=== PATIENT | male | born 1940 | race Two or more races ===

== ENCOUNTER 2020-03-11 13:01 | Inpatient (IN) | payer OTHER ==
[2020-03-16] MEDS ORDERED: FLUARIX QU60 MCG/0.4 (11:17)
[2020-03-16] MEDS ORDERED: LOSARTAN POTAS100 MG PO (11:17)
[2020-03-16] MEDS ORDERED: ROSUVASTATIN CAL5 MG (11:17)
[2020-03-16] MEDS ORDERED: ACID CONTROL150 MG (11:18)
[2020-03-16] MEDS ORDERED: FLAGYL500MG PO (11:21)
[2020-03-16] MEDS ORDERED: CIPRO500 MG/5 M PO (11:22)
[2020-03-16] MEDS ORDERED: PEPCID20 MG PO (11:23)
== END 2020-03-16 12:13 | disposition home or self-care (01) | DRG 443 ==
LOC: SURG 13:01
PROVIDERS: ADMIT Internal Medicine
PROC: BW21ZZZ Computerized Tomography (CT Scan) of Abdomen and Pelvis (ICD-10-PCS; 2020-03-11)
PROC: 0F913ZX Drainage of Right Lobe Liver, Percutaneous Approach, Diagnostic (ICD-10-PCS; principal; 2020-03-12)
DX: K75.0 Abscess of liver (principal); I10 Essential (primary) hypertension